=== PATIENT | male | born 1965 | race Caucasian/White ===

== ENCOUNTER 2018-05-22 12:44 | Emergency (ER) | payer SELFPAY ==
[2018-05-22] MEDS ORDERED: CEPHALEXIN 500 MG CAPSULE PO ONE (14:13)
[2018-05-22] MEDS ORDERED: SULFAMETHOXAZOLE/TRIMETHOPRIM 800-160 MG TABLET PO ONE (14:13)
[2018-05-22] MEDS ORDERED: IBUPROFEN 600 MG TABLET PO ONE (14:18)
--- NOTE | 2018-05-22 14:18 | ER Document Report ---
ED Skin Rash/Insect Bite/Abscs - General Chief Complaint: Insect Bite Stated Complaint: LEFT LEG PAIN Time Seen by Provider: 05/22/18 13:46 Mode of Arrival: Ambulatory Information source: Patient Notes: 52-year-old male presented to ED for complaint of a "bug bite for 3 days that is becoming more more red and swollen. He states he has tried to squeeze it but it just became more more painful to the left lateral lower leg. There is redness surrounding the abscess. Patient states he has been applying Neosporin and it is not getting any better. Patient is alert and oriented respirations regular and unlabored speaking in full sentences walks with a even steady gait. TRAVEL OUTSIDE OF THE [place] IN LAST 30 DAYS: No - HPI Patient complains to provider of: Tender/swollen area Onset: Other - 3 days Onset/Duration: Gradual, Worse Quality of pain: Sharp, Throbbing Severity: Moderate Pain Level: 2 Skin Character: Abscess Skin Temperature: Warm Quality of rash: Painful Exacerbated by: Denies Relieved by: Denies Similar symptoms previously: Yes Recently seen / treated by doctor: No - Related Data Allergies/Adverse Reactions: No Known Allergies Allergy (Unverified 05/22/18 12:48) Past Medical History - General Information source: Patient - Social History Smoking Status: Never Smoker Cigarette use (# per day): No Chew tobacco use (# tins/day): No Smoking Education Provided: No Frequency of alcohol use: Occasional Drug Abuse: None Lives with: Family Family History: Reviewed & Not Pertinent Patient has suicidal ideation: No Patient has homicidal ideation: No - Past Medical History Cardiac Medical History: Reports: Hx Hypertension, Hx Heart Murmur Pulmonary Medical History: Reports: None EENT Medical History: Reports: None Neurological Medical History: Reports: None Endocrine Medical History: Reports: None Renal/ Medical History: Reports: None Malignancy Medical History: Reports None GI Medical History: Reports: None Musculoskeletal Medical History: Reports None Skin Medical History: Reports None Psychiatric Medical History: Reports: None Traumatic Medical History: Reports: None Infectious Medical History: Reports: None Surgical Hx: Negative Past Surgical History: Reports: None - Immunizations Immunizations up to date: Yes Review of Systems - Review of Systems Constitutional: No symptoms reported EENT: No symptoms reported Cardiovascular: No symptoms reported Respiratory: No symptoms reported Gastrointestinal: No symptoms reported Genitourinary: No symptoms reported Male Genitourinary: No symptoms reported Musculoskeletal: No symptoms reported Skin: Other - Small abscess to left lateral lower leg Hematologic/Lymphatic: No symptoms reported Neurological/Psychological: No symptoms reported -: Yes All other systems reviewed and negative Physical Exam - Vital signs Vitals: Temp Pulse Resp BP Pulse Ox 98.2 F 76 16 150/96 H 96 05/22/18 13:03 05/22/18 13:03 05/22/18 13:03 05/22/18 13:03 05/22/18 13:03 Interpretation: Normal - General General appearance: Appears well, Alert - HEENT Head: Normocephalic, Atraumatic Eyes: Normal Pupils: PERRL - Respiratory Respiratory status: No respiratory distress Chest status: Nontender Breath sounds: Normal Chest palpation: Normal - Cardiovascular Rhythm: Regular Heart sounds: Normal auscultation Murmur: No - Abdominal Inspection: Normal Distension: No distension Bowel sounds: Normal Tenderness: Nontender Organomegaly: No organomegaly - Back Back: Normal, Nontender - Extremities General upper extremity: Normal inspection, Nontender, Normal color, Normal ROM , Normal temperature General lower extremity: Normal inspection, Nontender, Normal color, Normal ROM , Normal temperature, Normal weight bearing. No: Daniel's sign - Neurological Neuro grossly intact: Yes Cognition: Normal Orientation: AAOx4 [place] Coma Scale Eye Opening: Spontaneous Gavino Coma Scale Verbal: Oriented Gavino Coma Scale Motor: Obeys Commands [place] Coma Scale Total: 15 Speech: Normal Motor strength normal: LUE, RUE, LLE, RLE Sensory: Normal - Psychological Associated symptoms: Normal affect, Normal mood - Skin Skin Temperature: Warm Skin Moisture: Dry Skin Color: Normal Skin irregularity: Abscess Location of irregularity: Extremities - Left lower lateral leg Character of irregularity: Erythematous Irregularity with: Swelling, Tenderness, Warmth Course - Vital Signs Vital signs: Temp Pulse Resp BP Pulse Ox 97.7 F 69 18 147/83 H 97 05/22/18 14:27 05/22/18 14:27 05/22/18 14:27 05/22/18 14:27 05/22/18 14:27 Procedures - Incision and Drainage Left Lower Leg Time completed: 14:10 Type: Simple Anesthetic type: Other - 0 mL's of anesthetic: 0 Blade size: Other - 18 gauge needle I&D procedure: Shurclens applied Incision Method: Incision made with needle Amount/type of drainage: moderate Discharge - Discharge Clinical Impression: Abscess of left leg excluding foot Condition: Stable Disposition: HOME, SELF-CARE Instructions: Family Physicians / Practices Additional Instructions: ABSCESS: You have an abscess (boil). This a pus-forming infection, usually due to staph. Some boils may be left to drain on their own, but most require lancing. From the time the tender lump first appears, it may be three or four days before the abscess is ready to [place]. Local heat and rest help at this stage of treatment. An antibiotic may prevent spread of the infection. Once the abscess is opened, packing may be placed into it. This is done so pus is not sealed inside by premature closure of the cavity. The packing will be removed at your follow-up visit or you may be advised to remove it yourself at home. Sometimes this packing must be replaced a few times during healing. The wound will heal with surprisingly little scar. Depending on the size and location of an abscess, healing can take one to four weeks. You may shower and wash the area around the incision site two or three times a day. Antibiotics may be prescribed, but are usually not necessary after an abscess has been drained. If you develop fever, chills, worsening pain, or increasing swelling in the area, call the doctor or return immediately. CEPHALEXIN: The antibiotic you've been prescribed is a member of the cephalosporin class. This type of antibiotic covers a wide variety of infections, including those of the skin, lungs, and urinary tract. It's useful for staph infections. This antibiotic is slightly similar to the penicillin family. In rare cases , a person who is allergic to penicillin will also be allergic to this medication. If you have had a severe allergic reaction to penicillin, and have not taken this antibiotic since that time, notify your doctor. Antibiotics which cover many germs ("broad spectrum" antibiotics) are more likely to cause diarrhea or "yeast" infections. Women prone to vaginal yeast problems may suffer an attack after taking this antibiotic. In infants, oral thrush (white spots "stuck" on the cheek) or yeast diaper rash may result. See your doctor if these problems occur. Call at once if you develop itching, hives , shortness of breath, or lightheadedness. TRIMETHOPRIM-SULFA: You have been given a prescription for trimethoprim-sulfa (TMS, Septra, Bactrim). This is a combination antibiotic of the sulfa class, often used for urinary tract infections, middle ear infections, bronchitis, shigella intestinal infection, and Pneumocystis pneumonia. TMS is usually well-tolerated. Occasional side effects include nausea and decreased appetite. Septra is not recommended for infants less than two months of age. Do not take this medication if you have experienced severe side effects or allergy to sulfa medicine. You should stop this medicine at once and contact your physician if you develop any rash, joint pain, shortness of breath, bruising, or jaundice ( yellow color in the skin), or if you develop any other new or unusual symptoms. Epsom Salt Soaks Soak the wound area in a container of warm epsom salt water. If you can't get the wound area into a bucket or [place], use a folded towel soaked in the epsom salt solution and apply to the area. Use clean hot tap water (about the temperature of a very warm bath), mixing in about one (1) teaspoon for every pint of water. Two gallon --> 16 teaspoons Epsom Salts One gallon --> 8 teaspoons Epsom Salts Two quarts --> 4 teaspoons Epsom Salts One quart --> 2 teaspoons Epsom Salts Soak the wound for about 20 minutes while gently moving it around in the water. Repeat this four (4) times a day. FOLLOW-UP CARE: Most simple abscesses will not require a follow up visit. If you had packing placed in the abscess, remove it as instructed by the physician. If you have been referred to a physician for follow-up care, call the physicians office for an appointment as you were instructed or within the next two days. If you experience worsening or a significant change in your symptoms, return to the Emergency Department at any time for re-evaluation. Prescriptions: Cephalexin Monohydrate [Keflex 500 mg Capsule] 500 mg PO Q6H 5 Days capsule Sulfamethoxazole/Trimethoprim [Septra-Ds 800-160 mg Tablet] 1 tab PO BID #14 tablet Forms: Elevated Blood Pressure Referrals: MARISELA MCKEON MD [Primary Care Provider] - Follow up as needed
[2018-05-22 14:31] VITALS: BP 147/83
== END 2018-05-22 14:33 | disposition home or self-care (01) ==
LOC: ER 12:44
DX: L02.416 Cutaneous abscess of left lower limb (principal); I10 Essential (primary) hypertension
CPT/HCPCS: 87070; 87075; 87077; 87186; 87205; 99281

== ENCOUNTER 2018-07-27 16:48 | Emergency (ER) | payer OTHER ==
[2018-07-27] MEDS ORDERED: CEPHALEXIN 500 MG CAPSULE PO ONE (19:43)
[2018-07-27] MEDS ORDERED: OXYCODONE-ACETAMINOPHEN 5-325 MG TABLET PO ONE (19:43)
[2018-07-27] MEDS ORDERED: SULFAMETHOXAZOLE/TRIMETHOPRIM 800-160 MG TABLET PO ONE (19:43)
[2018-07-27] MEDS ORDERED: LIDOCAINE 1% INJ-PF (10 MG/ML) 30 ML SDV INJ ONE (19:43)
--- NOTE | 2018-07-27 19:45 | ER Document Report ---
ED Medical Screen (RME) - General Chief Complaint: Abscess Stated Complaint: POSSIBLE ABSCESS Time Seen by Provider: 07/27/18 19:38 Primary Care Provider: MARISELA MCKEON MD [Primary Care Provider] - Follow up as needed Notes: Patient is a 52-year-old male with history of MRSA abscesses that presents to the emergency department for chief complaint of abscess on the right leg, and left armpit. Patient states he noticed these a few days ago, no associated fevers, the one on his leg did start to drain. ROS: Other than noted above, the 12 point review of systems was reviewed with the patient and were negative, all pertinent findings are included in the HPI. PHYSICAL EXAMINATION: Vital signs reviewed. GENERAL: Well-appearing, well-nourished and in no acute distress. HEAD: Atraumatic, normocephalic. EYES: Pupils equal round extraocular movements intact, conjunctiva are normal. ENT: Nares patent NECK: Normal range of motion CV: Heart regular rate and rhythm LUNGS: No respiratory distress Musculoskeletal: Normal range of motion Skin: There are 2 abscesses noted, one on the right botello, with surrounding erythema and induration, and one in the left axilla, that is coming to ahead. NEUROLOGICAL: Normal speech PSYCH: Normal mood, normal affect. MDM: Patient seen and examined for rapid initial assessment. Vital signs reviewed. A comprehensive ED assessment and evaluation of the patient, analysis of test results and completion of the medical decision making process will be conducted by additional ED providers. *Note is created using voice recognition software and may contain spelling, syn tax or grammatical errors. TRAVEL OUTSIDE OF THE [place] IN LAST 30 DAYS: No - Related Data Allergies/Adverse Reactions: No Known Allergies Allergy (Verified 07/27/18 16:52) Past Medical History - Past Medical History Cardiac Medical History: Reports: Hx Hypertension, Hx Heart Murmur Renal/ Medical History: Denies: Hx Peritoneal Dialysis - Immunizations Immunizations up to date: Yes Physical Exam - Vital signs Vitals: Temp Pulse Resp BP Pulse Ox 99.2 F 83 16 159/89 H 97 07/27/18 17:35 07/27/18 17:35 07/27/18 17:35 07/27/18 17:35 07/27/18 17:35 Course - Vital Signs Vital signs: Temp Pulse Resp BP Pulse Ox 99.2 F 83 16 159/89 H 97 07/27/18 17:35 07/27/18 17:35 07/27/18 17:35 07/27/18 17:35 07/27/18 17:35 Doctor's Discharge - Discharge Referrals: MARISELA MCKEON MD [Primary Care Provider] - Follow up as needed
--- NOTE | 2018-07-27 21:59 | ER Document Report ---
Addendum entered and electronically signed by HONEY TYLER PA-C 07/28/18 02:03: Procedures - Incision and Drainage Right Anterior Leg Type: Simple Anesthetic type: 1% Lidocaine Blade size: 11 I&D procedure: Shurclens applied Incision Method: Incision made by scalpel Right Upper Arm Type: Simple Anesthetic type: 2% Lidocaine Blade size: 11 I&D procedure: Shurclens applied Incision Method: Incision made by scalpel Original Note: ED General - General Chief Complaint: Abscess Stated Complaint: POSSIBLE ABSCESS Time Seen by Provider: 07/27/18 19:38 Primary Care Provider: MARISELA MCKEON MD [NO LOCAL MD] - Follow up as needed Notes: 52-year-old male with history of MRSA abscesses that presents to the emergency department for chief complaint of abscess on the right leg, and left armpit. Patient states he noticed these a few days ago, no associated fevers, chills, nausea, vomiting, the one on his leg did start to drain. Patient states he has no red tracts moving up his leg for down his arm. Patient is not a diabetic. Patient has no other complaints TRAVEL OUTSIDE OF THE [place] IN LAST 30 DAYS: No - Related Data Allergies/Adverse Reactions: No Known Allergies Allergy (Verified 07/27/18 16:52) Past Medical History - Social History Smoking Status: Former Smoker Chew tobacco use (# tins/day): No Frequency of alcohol use: Social Drug Abuse: Bath salts Family History: Reviewed & Not Pertinent Patient has suicidal ideation: No Patient has homicidal ideation: No - Past Medical History Cardiac Medical History: Reports: Hx Hypertension, Hx Heart Murmur Renal/ Medical History: Denies: Hx Peritoneal Dialysis - Immunizations Immunizations up to date: Yes Review of Systems - Review of Systems Constitutional: See HPI EENT: No symptoms reported Cardiovascular: No symptoms reported Respiratory: No symptoms reported Gastrointestinal: See HPI Genitourinary: No symptoms reported Male Genitourinary: No symptoms reported Musculoskeletal: No symptoms reported Skin: See HPI Hematologic/Lymphatic: No symptoms reported Neurological/Psychological: No symptoms reported Physical Exam - Vital signs Vitals: Temp Pulse Resp BP Pulse Ox 99.2 F 83 16 159/89 H 97 07/27/18 17:35 07/27/18 17:35 07/27/18 17:35 07/27/18 17:35 07/27/18 17:35 - Notes Notes: PHYSICAL EXAMINATION: Reviewed vital signs and charting by RN GENERAL: Alert, interacts well. No acute distress. HEAD: Normocephalic, atraumatic. EYES: Pupils equal, round Extraocular movements intact. ENT: Oral mucosa moist, tongue midline. NECK: Full range of motion. Trachea midline. EXTREMITIES: Moves all 4 extremities spontaneously. No edema, No cyanosis. BACK: no cervical, thoracic, lumbar midline tenderness. No saddle anesthesia, normal distal neurovascular exam. NEUROLOGICAL: Alert and oriented x3. Normal speech. PSYCH: Normal affect, normal mood. SKIN: Warm, dry, normal turgor. Left axilla with abscess mild erythema surrounding it. Right anterior distal leg with raised erythematous area. Course - Re-evaluation Re-evalutation: 07/27/18 21:58 Patient with history of MRSA abscess presents for 2 abscesses. Incision and drainage completed. No complications. Patient is not a diabetic. Plan is to place him on clindamycin with - Vital Signs Vital signs: Temp Pulse Resp BP Pulse Ox 99.2 F 83 16 159/89 H 97 07/27/18 17:35 07/27/18 17:35 07/27/18 17:35 07/27/18 17:35 07/27/18 17:35 Discharge - Discharge Clinical Impression: Abscess Cellulitis Qualifiers: Site of cellulitis: extremity Site of cellulitis of extremity: lower extremity Laterality: right Qualified Code(s): L03.115 - Cellulitis of right lower limb Condition: Good Disposition: HOME, SELF-CARE Instructions: Abscess ([facility]), MRSA Cellulitis ([facility]), Post Incision and Drainage Additional Instructions: You were seen for an abscess that required drainage. Please clean this area with soap and water twice daily and apply a topical antibiotic. Dress the area after each cleaning. Please return if you develop fever, vomiting, the pain at the site worsens, you notice spreading redness from the area, or you have any other symptoms that are concerning to you. Referrals: MARISELA MCKEON MD [NO LOCAL MD] - Follow up as needed
[2018-07-27 22:38] VITALS: BP 131/80
== END 2018-07-27 22:40 | disposition home or self-care (01) ==
LOC: ER 16:48
PROC: 0H9KXZZ Drainage of Right Lower Leg Skin, External Approach (ICD-10-PCS; principal; 2018-07-27)
DX: L02.415 Cutaneous abscess of right lower limb (principal); L02.412 Cutaneous abscess of left axilla; L03.115 Cellulitis of right lower limb; Z87.891 Personal history of nicotine dependence; I10 Essential (primary) hypertension
CPT/HCPCS: 99283; 87070; 87205; 87077; 87186; 10060; A6266

== ENCOUNTER 2018-07-30 19:47 | Emergency (ER) | payer OTHER ==
--- NOTE | 2018-07-30 22:19 | ER Document Report ---
HPI - HPI Time Seen by Provider: 07/30/18 21:49 Pain Level: 4 Notes: Patient is a 52-year-old male with past medical history of MRSA who presents to the emergency department with request for wound recheck. Patient states he was seen in this emergency department 2 days ago and had a an abscess incised and drained to his right lower extremity. Patient states he is taking Bactrim and Keflex as prescribed. He states he has not change the dressing until today. He reports that he thinks the redness has increased. He reports mild tenderness to the area. He denies any fevers, chills, nausea or vomiting. Past Medical History - General Information source: Patient - Social History Smoking Status: Current Every Day Smoker Frequency of alcohol use: None Drug Abuse: None Family History: Reviewed & Not Pertinent - Past Medical History Cardiac Medical History: Reports: Hx Hypertension, Hx Heart Murmur Renal/ Medical History: Denies: Hx Peritoneal Dialysis - Immunizations Immunizations up to date: Yes Vertical Provider Document - CONSTITUTIONAL Notes: PHYSICAL EXAMINATION: GENERAL: Well-appearing, well-nourished and in no acute distress. HEAD: Atraumatic, normocephalic. EYES: Pupils equal round extraocular movements intact, conjunctiva are normal. ENT: Nares patent NECK: Normal range of motion LUNGS: No respiratory distress Musculoskeletal: Normal range of motion NEUROLOGICAL: Normal speech, normal gait. PSYCH: Normal mood, normal affect. SKIN: Area of erythema to anterior right lower extremity. Mild induration with small area of fluctuance noted. Small open area from previous I&D. No warmth, no streaking. - INFECTION CONTROL TRAVEL OUTSIDE OF THE [place] IN LAST 30 DAYS: No Course - Re-evaluation Re-evalutation: On physical examination patient has an abscess to his right lower extremity. He is alert, nontoxic and vital signs are within normal limits. During the previous visit, the previous provider used a surgical marker to juanita the area. The redness has not extended beyond the border of the surgical markings. There is a small area of induration with fluctuance noted. I will perform an additional incision and drainage to open up the area a little wider to allow for better healing. Patient does report history of MRSA, denies history of diabetes. Incision and drainage was performed, patient tolerated well, see procedure note. A small amount of purulent drainage was obtained from the wound. I did place iodoform packing to the area. Patient was instructed to have the packing removed in 48 hours. Patient was also instructed to apply warm compresses to the area at least 3-4 times daily and change the dressing at least twice daily. Patient reports he did not know that he was supposed to be putting warm compresses to the area. I encouraged the patient to continue taking the antibiotics as prescribed. He was given strict ED return precautions to include development of fever, increased redness to the area or red streaking from the area. Patient verbalizes understanding of plan and agreement with same. - Vital Signs Vital signs: Temp Pulse Resp BP Pulse Ox 98.4 F 85 20 145/88 H 96 07/30/18 20:06 07/30/18 20:06 07/30/18 20:06 07/30/18 20:06 07/30/18 20:06 Procedures - Incision and Drainage Right lower extremity Type: Simple Anesthetic type: 1% Lidocaine Blade size: 11 I&D procedure: Betadine prep applied Incision Method: Incision made by scalpel Adult Front & Back picture: 1 - Abscess location Discharge - Discharge Clinical Impression: Abscess Condition: Stable Disposition: HOME, SELF-CARE Instructions: Abscess ([facility]), MRSA Cellulitis ([facility]), Post Incision and Drainage Additional Instructions: Please continue to take the antibiotics as prescribed. Today I opened up the abscess little wider to help allow for drainage. Packing was placed. It is very important that this packing be removed in 48 hours. If it happens to fall out prior to this that is okay. Please apply warm compresses to the area at least 3-4 times daily. Return to the emergency department if you experience worsening of the redness, red streaks, development of fever or any worsening symptoms.
[2018-07-31 00:13] VITALS: BP 132/73
== END 2018-07-31 00:13 | disposition home or self-care (01) ==
LOC: ER 19:47
PROC: 0H9KXZZ Drainage of Right Lower Leg Skin, External Approach (ICD-10-PCS; principal; 2018-07-30)
DX: L02.415 Cutaneous abscess of right lower limb (principal); Z86.14 Personal history of Methicillin resistant Staphylococcus aureus infection; F17.200 Nicotine dependence, unspecified, uncomplicated
CPT/HCPCS: 99282; 10060; A6266